=== PATIENT | male | born 2000 | race Caucasian/White ===

== ENCOUNTER 2021-11-04 15:59 | Emergency (ER) | payer OTHER ==
[~2021-11-04] VITALS: Ht 190.5 cm; Wt 81.7 kg
[2021-11-04] MEDS ORDERED: Vistaril50 MG PO (16:31)
== END 2021-11-04 16:37 | disposition home or self-care (01) ==
LOC: ER 15:59
DX: F41.9 Anxiety disorder, unspecified (principal)
CPT/HCPCS: 99282

== ENCOUNTER → 2022-05-05 | Outpatient (CLI) | payer OTHER ==
[~2022-05-05] MED LIST: Vistaril50 MG PO
[2022-05-05 19:29] LABS: BASOPHILS ABSOLUTE AUTO 0.02 K/mm3 (0.00-0.23); BASOPHILS PERCENT AUTO 0 % (0-2); EOSINOPHILS ABSOLUTE AUTO 0.15 K/mm3 (0.00-0.68); EOSINOPHILS PERCENT AUTO 3 % (0-6); Hematocrit 44.1 % (37.0-53.0); Hemoglobin 14.4 g/dL (13.5-17.5); IMMATURE GRAN PERCENT AUTO 0 % (0-1); LYMPHOCYTES ABSOLUTE AUTO 2.03 K/mm3 (0.84-5.20); LYMPHOCYTES PERCENT AUTO 42 % (21-46); MONOCYTES ABSOLUTE AUTO 0.37 K/mm3 (0.16-1.47); MONOCYTES PERCENT AUTO 8 % (4-13); Mean Corpuscular HGB 29.1 pg (26.0-34.0); Mean Corpuscular HGB Conc 32.7 g/dL (31.5-36.5); Mean Corpuscular Volume 89 fL (80-100); Mean Platelet Volume 11.2 fL (9.1-12.4); NEUTROPHILS PERCENT AUTO 47 % (41-73); Platelet Count 198 K/mm3 (150-400); RDW Coefficient Variation 12.3 % (11.7-14.2); RDW Standard Deviation 40.7 fL (35.1-46.3); Red Blood Cell Count 4.94 M/mm3 (4.30-5.90); White Blood Cell Count 4.87 K/mm3 (4.00-11.30)
[2022-05-05 21:09] LABS: Alanine Aminotransfer (ALT/SGP 19 U/L (12-78); Albumin, Blood 4.4 g/dL (3.4-5.0); Albumin/Globulin Ratio 1.5 (0.8-1.8); Alk Phos 42 U/L (50-136); Anion Gap 9 mmol/L (6-16); Aspartate Aminotrans (AST/SGOT 15 U/L (12-37); Bilirubin, Total 0.5 mg/dL (0.1-1.0); Blood Urea Nitrogen 16 mg/dL (8-24); CHOL/HDL RATIO 1.9; CO2, Blood 25 mmol/L (21-32); Calcium, Blood 9.2 mg/dL (8.5-10.1); Chloride, Blood 106 mmol/L (98-108); Cholesterol 150 mg/dL (50-200); Globulin, Blood 2.9 g/dL (2.2-4.0); Glomerular Filtration Rate 134 (60-); Glucose, Blood 93 mg/dL (70-99); HDL Cholesterol 78 mg/dL (>39); LDL/HDL RATIO 0.8; Low Density Lipoprotein Chol 64 mg/dL (0-110); Sodium, Blood 140 mmol/L (136-145); Total Protein, Blood 7.3 g/dL (6.4-8.2); Triglycerides 40 mg/dL (30-140); Very Low Density Lipoprot Chol 8 mg/dL (6-28)
== END | disposition home or self-care (01) ==
LOC: LAB 14:30 → LAB SHORT 14:30
PROVIDERS: Family Medicine
DX: Z13.6 Encounter for screening for cardiovascular disorders (principal); Z79.899 Other long term (current) drug therapy
CPT/HCPCS: 80053; 80061; 84443; 85025

== ENCOUNTER 2022-09-17 11:07 | Emergency (ER) | payer OTHER ==
[~2022-09-17] VITALS: Ht 190.5 cm; Wt 81.7 kg
[2022-09-17 12:15] LABS: BASOPHILS ABSOLUTE AUTO 0.02 K/mm3 (0.00-0.23); BASOPHILS PERCENT AUTO 0 % (0-2); EOSINOPHILS ABSOLUTE AUTO 0.01 K/mm3 (0.00-0.68); EOSINOPHILS PERCENT AUTO 0 % (0-6); Hemoglobin 13.5 g/dL (13.5-17.5); IMMATURE GRAN ABSOLUTE AUTO 0.01 K/mm3 (0.00-0.10); IMMATURE GRAN PERCENT AUTO 0 % (0-1); LYMPHOCYTES ABSOLUTE AUTO 1.68 K/mm3 (0.84-5.20); LYMPHOCYTES PERCENT AUTO 32 % (21-46); MONOCYTES ABSOLUTE AUTO 0.36 K/mm3 (0.16-1.47); MONOCYTES PERCENT AUTO 7 % (4-13); Mean Corpuscular HGB 29.5 pg (26.0-34.0); Mean Corpuscular HGB Conc 33.8 g/dL (31.5-36.5); Mean Corpuscular Volume 88 fL (80-100); Mean Platelet Volume 10.5 fL (9.1-12.4); NEUTROPHILS ABSOLUTE AUTO 3.21 K/mm3 (1.96-9.15); NEUTROPHILS PERCENT AUTO 61 % (41-73); Platelet Count 192 K/mm3 (150-400); RDW Standard Deviation 38.6 fL (35.1-46.3); Red Blood Cell Count 4.57 M/mm3 (4.30-5.90); White Blood Cell Count 5.29 K/mm3 (4.00-11.30)
[2022-09-17 12:37] LABS: Ethanol (Alcohol), Blood, Med <3 mg/dL; Salicylate <1.7 mg/dL (2.8-20.0)
[2022-09-17 12:40] LABS: Acetaminophen, Random <2.0 ug/mL (10.0-30.0); Alanine Aminotransfer (ALT/SGP 21 U/L (12-78); Albumin, Blood 4.4 g/dL (3.4-5.0); Albumin/Globulin Ratio 1.4 (0.8-1.8); Alk Phos 43 U/L (50-136); Anion Gap 6 mmol/L (6-16); Aspartate Aminotrans (AST/SGOT 22 U/L (12-37); Bilirubin, Total 0.8 mg/dL (0.1-1.0); Blood Urea Nitrogen 10 mg/dL (8-24); Bun/Creatinine Ratio 15.3 (12.0-20.0); CO2, Blood 25 mmol/L (21-32); Calcium, Blood 9.3 mg/dL (8.5-10.1); Chloride, Blood 108 mmol/L (98-108); Creatinine, Blood 0.65 mg/dL (0.60-1.20); Globulin, Blood 3.1 g/dL (2.2-4.0); Glomerular Filtration Rate 137 (60-); Glucose, Blood 88 mg/dL (70-99); Potassium, Blood 3.7 mmol/L (3.5-5.5); Sodium, Blood 139 mmol/L (136-145); Total Protein, Blood 7.5 g/dL (6.4-8.2)
[2022-09-17 14:01] LABS: Influenza A, PCR NEGATIVE (NEGATIVE); Influenza B, PCR NEGATIVE (NEGATIVE); Resp Syncytial Virus, PCR NEGATIVE (NEGATIVE); SARS-Cov-2 (COVID-19) PCR, MMC NEGATIVE (NEGATIVE)
[2022-09-17] MEDS ORDERED: Zoloft25 MG PO (14:32)
== END 2022-09-17 14:45 | disposition home or self-care (01) ==
LOC: ER 11:07
PROVIDERS: Physician Assistant; Student in an Organized Health Care Education/Training Program
DX: F32.9 Major depressive disorder, single episode, unspecified (principal); F32.A Depression, unspecified
CPT/HCPCS: 0241U; 80053; 85025; A9270; G0480

== ENCOUNTER 2022-12-19 09:02 | Observation (INO) | payer OTHER ==
[~2022-12-19] VITALS: Ht 190.5 cm; Wt 86.2 kg
[~2022-12-19 09:02] MED LIST changes: +Zoloft25 MG PO
[2022-12-19] MEDS ORDERED: Prozac40 MG PO (09:53)
[2022-12-19] MEDS ORDERED: ZYPREXA513 PO (09:53)
[2022-12-19] MEDS ORDERED: ASPI325 (09:53)
[2022-12-19 10:40] LABS: BASOPHILS ABSOLUTE AUTO 0.02 K/mm3 (0.00-0.23); BASOPHILS PERCENT AUTO 0 % (0-2); EOSINOPHILS ABSOLUTE AUTO 0.02 K/mm3 (0.00-0.68); EOSINOPHILS PERCENT AUTO 0 % (0-6); Hematocrit 45.6 % (37.0-53.0); IMMATURE GRAN ABSOLUTE AUTO 0.01 K/mm3 (0.00-0.10); IMMATURE GRAN PERCENT AUTO 0 % (0-1); LYMPHOCYTES ABSOLUTE AUTO 1.69 K/mm3 (0.84-5.20); LYMPHOCYTES PERCENT AUTO 19 % (21-46); MONOCYTES ABSOLUTE AUTO 0.39 K/mm3 (0.16-1.47); MONOCYTES PERCENT AUTO 4 % (4-13); Mean Corpuscular HGB Conc 35.1 g/dL (31.5-36.5); Mean Corpuscular Volume 85 fL (80-100); Mean Platelet Volume 10.1 fL (9.1-12.4); NEUTROPHILS ABSOLUTE AUTO 7.01 K/mm3 (1.96-9.15); NEUTROPHILS PERCENT AUTO 77 % (41-73); Platelet Count 259 K/mm3 (150-400); RDW Coefficient Variation 12.2 % (11.7-14.2); RDW Standard Deviation 38.1 fL (35.1-46.3); Red Blood Cell Count 5.34 M/mm3 (4.30-5.90); White Blood Cell Count 9.14 K/mm3 (4.00-11.30)
[2022-12-19 10:48] LABS: Source, Urine Clean Catch
[2022-12-19 11:17] LABS: Ethanol (Alcohol), Blood, Med <3 mg/dL; Salicylate <1.7 mg/dL (2.8-20.0)
[2022-12-19 11:20] LABS: Alanine Aminotransfer (ALT/SGP 27 U/L (12-78); Albumin, Blood 5.3 g/dL (3.4-5.0); Albumin/Globulin Ratio 1.6 (0.8-1.8); Alk Phos 51 U/L (50-136); Anion Gap 7 mmol/L (6-16); Aspartate Aminotrans (AST/SGOT 24 U/L (12-37); Bilirubin, Total 0.8 mg/dL (0.1-1.0); Blood Urea Nitrogen 14 mg/dL (8-24); Bun/Creatinine Ratio 21.3 (12.0-20.0); CO2, Blood 24 mmol/L (21-32); Calcium, Blood 9.9 mg/dL (8.5-10.1); Chloride, Blood 108 mmol/L (98-108); Creatinine, Blood 0.66 mg/dL (0.60-1.20); Globulin, Blood 3.4 g/dL (2.2-4.0); Glomerular Filtration Rate 136 (60-); Glucose, Blood 74 mg/dL (70-99); Potassium, Blood 4.1 mmol/L (3.5-5.5); Sodium, Blood 139 mmol/L (136-145); Total Protein, Blood 8.7 g/dL (6.4-8.2)
[2022-12-19 11:21] LABS: Acetaminophen, Random <2.0 ug/mL (10.0-30.0)
[2022-12-19 11:26] LABS: Influenza A, PCR NEGATIVE (NEGATIVE); Influenza B, PCR NEGATIVE (NEGATIVE); Resp Syncytial Virus, PCR NEGATIVE (NEGATIVE); SARS-Cov-2 (COVID-19) PCR, MMC NEGATIVE (NEGATIVE)
[2022-12-19 11:27] LABS: U Amphetamine Screen Not Detected; U Barbituate Screen Not Detected; U Benzodiazapine Screen Not Detected; U Buprenorphine Screen Not Detected; U Cannabinoids Screen DETECTED; U Cocaine Screen Not Detected; U Methadone Screen Not Detected; U Methamphetamine Screen Not Detected; U Opiates Screen Not Detected; U Oxycodone Screen Not Detected; U Phencyclidine Screen Not Detected; U Propoxyphene Screen Not Detected
[2022-12-19 11:36] LABS: Appearance, Urine Clear (Clear); Bilirubin, Urine Neg (Neg); Blood, Urine Neg (Neg); Color, Urine Yellow (P-Yellow); Glucose Qualitative, Urine Neg (Neg); Ketones, Urine 2+ (Neg); Leukocyte Esterase, Urine Neg (Neg); Nitrite, Urine Neg (Neg); Protein, Urine 1+ (Neg); Specific Gravity, Urine 1.025 (1.003-1.022); Urobilinogen, Urine NORM (Normal)
== END 2022-12-19 22:20 ==
LOC: ER 09:02 → EOR 09:03
PROVIDERS: Physician Assistant; ADMIT Student in an Organized Health Care Education/Training Program
DX: F33.2 Major depressive disorder, recurrent severe without psychotic features (principal); F10.20 Alcohol dependence, uncomplicated; Z20.822 Contact with and (suspected) exposure to COVID-19
CPT/HCPCS: 0241U; 80053; 85025; 93005; 93010; A9270; G0480

== ENCOUNTER 2022-12-24 11:45 | Observation (INO) | payer OTHER ==
[~2022-12-24] VITALS: Ht 190.5 cm; Wt 86.2 kg
[~2022-12-24 11:45] MED LIST changes: +ASPI325; +Prozac40 MG PO; +ZYPREXA513 PO
[2022-12-24 13:53] LABS: Influenza A, PCR NEGATIVE (NEGATIVE); Influenza B, PCR NEGATIVE (NEGATIVE); Resp Syncytial Virus, PCR NEGATIVE (NEGATIVE); SARS-Cov-2 (COVID-19) PCR, MMC NEGATIVE (NEGATIVE)
[2022-12-24 13:58] LABS: BASOPHILS ABSOLUTE AUTO 0.02 K/mm3 (0.00-0.23); BASOPHILS PERCENT AUTO 0 % (0-2); EOSINOPHILS ABSOLUTE AUTO 0.01 K/mm3 (0.00-0.68); EOSINOPHILS PERCENT AUTO 0 % (0-6); Hematocrit 46.3 % (37.0-53.0); Hemoglobin 15.8 g/dL (13.5-17.5); IMMATURE GRAN ABSOLUTE AUTO 0.01 K/mm3 (0.00-0.10); IMMATURE GRAN PERCENT AUTO 0 % (0-1); LYMPHOCYTES ABSOLUTE AUTO 1.78 K/mm3 (0.84-5.20); LYMPHOCYTES PERCENT AUTO 29 % (21-46); MONOCYTES ABSOLUTE AUTO 0.28 K/mm3 (0.16-1.47); MONOCYTES PERCENT AUTO 5 % (4-13); Mean Corpuscular HGB 29.7 pg (26.0-34.0); Mean Corpuscular HGB Conc 34.1 g/dL (31.5-36.5); Mean Corpuscular Volume 87 fL (80-100); Mean Platelet Volume 10.1 fL (9.1-12.4); NEUTROPHILS ABSOLUTE AUTO 3.98 K/mm3 (1.96-9.15); NEUTROPHILS PERCENT AUTO 65 % (41-73); Platelet Count 221 K/mm3 (150-400); RDW Standard Deviation 38.8 fL (35.1-46.3); Red Blood Cell Count 5.32 M/mm3 (4.30-5.90); White Blood Cell Count 6.08 K/mm3 (4.00-11.30)
[2022-12-24 15:21] LABS: Source, Urine Clean Catch
[2022-12-24 15:24] LABS: Appearance, Urine Clear (Clear); Bilirubin, Urine Neg (Neg); Blood, Urine Neg (Neg); Color, Urine Yellow (P-Yellow); Glucose Qualitative, Urine Neg (Neg); Ketones, Urine 4+ (Neg); Leukocyte Esterase, Urine Neg (Neg); Nitrite, Urine Neg (Neg); Protein, Urine Neg (Neg); Specific Gravity, Urine 1.025 (1.003-1.022); Urobilinogen, Urine 1+ (Normal)
[2022-12-24 15:34] LABS: U Amphetamine Screen Not Detected; U Barbituate Screen Not Detected; U Benzodiazapine Screen DETECTED; U Buprenorphine Screen Not Detected; U Cannabinoids Screen DETECTED; U Cocaine Screen Not Detected; U Methadone Screen Not Detected; U Methamphetamine Screen Not Detected; U Opiates Screen Not Detected; U Oxycodone Screen Not Detected; U Phencyclidine Screen Not Detected; U Propoxyphene Screen Not Detected
[2022-12-24 15:34] LABS: Alanine Aminotransfer (ALT/SGP 26 U/L (12-78); Albumin, Blood 5.2 g/dL (3.4-5.0); Albumin/Globulin Ratio 1.5 (0.8-1.8); Alk Phos 48 U/L (40-126); Anion Gap 13 mmol/L (6-16); Aspartate Aminotrans (AST/SGOT 30 U/L (12-37); Bilirubin, Total 1.6 mg/dL (0.1-1.0); Blood Urea Nitrogen 16 mg/dL (8-24); CO2, Blood 27 mmol/L (21-32); Calcium, Blood 9.8 mg/dL (8.5-10.1); Chloride, Blood 100 mmol/L (98-108); Creatinine, Blood 0.84 mg/dL (0.60-1.20); Globulin, Blood 3.4 g/dL (2.2-4.0); Glomerular Filtration Rate 126 (60-); Glucose, Blood 81 mg/dL (70-99); Potassium, Blood 3.9 mmol/L (3.5-5.5); Sodium, Blood 140 mmol/L (136-145); Thyroid Stimulating Hormone 0.372 uIU/mL (0.360-4.800); Total Protein, Blood 8.6 g/dL (6.4-8.2)
[2022-12-24 19:36] LABS: Ethanol (Alcohol), Blood, Med <3 mg/dL; Salicylate <1.7 mg/dL (2.8-20.0); Thyroxine (T4) 11.3 ug/dL (4.5-12.1)
[2022-12-24 19:54] LABS: Acetaminophen, Random <2.0 ug/mL (10.0-30.0)
== END 2022-12-26 01:11 ==
LOC: ER 11:45 → EOR 14:06
PROVIDERS: Emergency Medicine; ADMIT Emergency Medicine
DX: F33.2 Major depressive disorder, recurrent severe without psychotic features (principal); F10.20 Alcohol dependence, uncomplicated; F41.1 Generalized anxiety disorder; Z79.899 Other long term (current) drug therapy; Z20.822 Contact with and (suspected) exposure to COVID-19
CPT/HCPCS: 0241U; 80053; 81003; 84436; 84443; 85025; 90714; 96372; 99285-25; A9270; G0378; G0480; J2060; Q3014

== ENCOUNTER → 2023-01-05 | Outpatient (CLI) | payer OTHER ==
[2023-01-05 19:50] LABS: BASOPHILS ABSOLUTE AUTO 0.01 K/mm3 (0.00-0.23); BASOPHILS PERCENT AUTO 0 % (0-2); EOSINOPHILS ABSOLUTE AUTO 0.01 K/mm3 (0.00-0.68); EOSINOPHILS PERCENT AUTO 0 % (0-6); Hematocrit 43.4 % (37.0-53.0); Hemoglobin 14.8 g/dL (13.5-17.5); IMMATURE GRAN ABSOLUTE AUTO 0.01 K/mm3 (0.00-0.10); IMMATURE GRAN PERCENT AUTO 0 % (0-1); LYMPHOCYTES ABSOLUTE AUTO 2.08 K/mm3 (0.84-5.20); LYMPHOCYTES PERCENT AUTO 36 % (21-46); MONOCYTES ABSOLUTE AUTO 0.39 K/mm3 (0.16-1.47); MONOCYTES PERCENT AUTO 7 % (4-13); Mean Corpuscular HGB 29.7 pg (26.0-34.0); Mean Corpuscular HGB Conc 34.1 g/dL (31.5-36.5); Mean Corpuscular Volume 87 fL (80-100); Mean Platelet Volume 10.5 fL (9.1-12.4); NEUTROPHILS ABSOLUTE AUTO 3.23 K/mm3 (1.96-9.15); NEUTROPHILS PERCENT AUTO 56 % (41-73); Platelet Count 250 K/mm3 (150-400); RDW Standard Deviation 38.5 fL (35.1-46.3); Red Blood Cell Count 4.98 M/mm3 (4.30-5.90); White Blood Cell Count 5.73 K/mm3 (4.00-11.30)
[2023-01-05 22:20] LABS: Alanine Aminotransfer (ALT/SGP 26 U/L (12-78); Albumin, Blood 4.5 g/dL (3.4-5.0); Albumin/Globulin Ratio 1.5 (0.8-1.8); Alk Phos 44 U/L (50-136); Anion Gap 3 mmol/L (6-16); Aspartate Aminotrans (AST/SGOT 17 U/L (12-37); Bilirubin, Total 0.9 mg/dL (0.1-1.0); Blood Urea Nitrogen 10 mg/dL (8-24); Bun/Creatinine Ratio 15.1 (12.0-20.0); CHOL/HDL RATIO 1.9; CO2, Blood 28 mmol/L (21-32); Calcium, Blood 9.2 mg/dL (8.5-10.1); Chloride, Blood 107 mmol/L (98-108); Cholesterol 153 mg/dL (50-200); Creatinine, Blood 0.66 mg/dL (0.60-1.20); Globulin, Blood 3.1 g/dL (2.2-4.0); Glomerular Filtration Rate 135 (60-); Glucose, Blood 114 mg/dL (70-99); HDL Cholesterol 81 mg/dL (>39); LDL/HDL RATIO 0.7; Low Density Lipoprotein Chol 54 mg/dL (0-110); Potassium, Blood 3.6 mmol/L (3.5-5.5); Sodium, Blood 138 mmol/L (136-145); Total Protein, Blood 7.6 g/dL (6.4-8.2); Triglycerides 88 mg/dL (30-140); Very Low Density Lipoprot Chol 17 mg/dL (6-28)
== END | disposition home or self-care (01) ==
LOC: LAB 13:40 → LAB SHORT 13:40
PROVIDERS: Family Medicine
DX: R10.9 Unspecified abdominal pain (principal); Z79.899 Other long term (current) drug therapy
CPT/HCPCS: 80053; 80061; 83690; 84443; 85025; G0480

== ENCOUNTER 2023-05-19 14:14 | Emergency (ER) | payer OTHER ==
[~2023-05-19] VITALS: Ht 190.5 cm; Wt 104.3 kg
[2023-05-19 14:23] VITALS: BP 160/111
[2023-05-19 14:52] LABS: BASOPHILS ABSOLUTE AUTO 0.01 K/mm3 (0.00-0.23); BASOPHILS PERCENT AUTO 0 % (0-2); EOSINOPHILS ABSOLUTE AUTO 0.05 K/mm3 (0.00-0.68); EOSINOPHILS PERCENT AUTO 1 % (0-6); Hematocrit 43.9 % (37.0-53.0); Hemoglobin 14.7 g/dL (13.5-17.5); IMMATURE GRAN ABSOLUTE AUTO 0.01 K/mm3 (0.00-0.10); IMMATURE GRAN PERCENT AUTO 0 % (0-1); LYMPHOCYTES ABSOLUTE AUTO 1.76 K/mm3 (0.84-5.20); LYMPHOCYTES PERCENT AUTO 34 % (21-46); MONOCYTES ABSOLUTE AUTO 0.35 K/mm3 (0.16-1.47); MONOCYTES PERCENT AUTO 7 % (4-13); Mean Corpuscular HGB 29.8 pg (26.0-34.0); Mean Corpuscular HGB Conc 33.5 g/dL (31.5-36.5); Mean Corpuscular Volume 89 fL (80-100); Mean Platelet Volume 10.7 fL (9.1-12.4); NEUTROPHILS ABSOLUTE AUTO 2.94 K/mm3 (1.96-9.15); NEUTROPHILS PERCENT AUTO 57 % (41-73); Platelet Count 193 K/mm3 (150-400); RDW Coefficient Variation 12.8 % (11.7-14.2); RDW Standard Deviation 41.3 fL (35.1-46.3); Red Blood Cell Count 4.94 M/mm3 (4.30-5.90); White Blood Cell Count 5.12 K/mm3 (4.00-11.30)
[2023-05-19] MEDS ORDERED: Prozac20 MG PO (14:58)
[2023-05-19] MEDS ORDERED: Gabapentin600 MG PO (14:58)
[2023-05-19 15:10] LABS: Source, Urine Clean Catch
[2023-05-19 15:14] LABS: Ethanol (Alcohol), Blood, Med <3 mg/dL; Salicylate <1.7 mg/dL (2.8-20.0)
[2023-05-19 15:18] LABS: Appearance, Urine Clear (Clear); Bilirubin, Urine Neg (Neg); Blood, Urine Neg (Neg); Color, Urine Yellow (P-Yellow); Glucose Qualitative, Urine Neg (Neg); Ketones, Urine Neg (Neg); Leukocyte Esterase, Urine Neg (Neg); Nitrite, Urine Neg (Neg); Protein, Urine Neg (Neg); Urobilinogen, Urine NORM (Normal)
[2023-05-19 15:23] LABS: Acetaminophen, Random <2.0 ug/mL (10.0-30.0); Alanine Aminotransfer (ALT/SGP 23 U/L (12-78); Albumin, Blood 4.6 g/dL (3.4-5.0); Albumin/Globulin Ratio 1.5 (0.8-1.8); Alk Phos 47 U/L (50-136); Anion Gap 4 mmol/L (6-16); Aspartate Aminotrans (AST/SGOT 20 U/L (12-37); Bilirubin, Total 0.8 mg/dL (0.1-1.0); Blood Urea Nitrogen 7 mg/dL (8-24); Bun/Creatinine Ratio 8.5 (12.0-20.0); CO2, Blood 27 mmol/L (21-32); Calcium, Blood 9.4 mg/dL (8.5-10.1); Chloride, Blood 109 mmol/L (98-108); Creatinine, Blood 0.82 mg/dL (0.60-1.20); Glomerular Filtration Rate 127 (60-); Glucose, Blood 100 mg/dL (70-99); Potassium, Blood 3.7 mmol/L (3.5-5.5); Sodium, Blood 140 mmol/L (136-145); Total Protein, Blood 7.6 g/dL (6.4-8.2)
[2023-05-19 15:34] LABS: U Amphetamine Screen Not Detected; U Barbituate Screen Not Detected; U Benzodiazapine Screen Not Detected; U Buprenorphine Screen Not Detected; U Cannabinoids Screen DETECTED; U Cocaine Screen Not Detected; U Methadone Screen Not Detected; U Methamphetamine Screen Not Detected; U Opiates Screen Not Detected; U Oxycodone Screen Not Detected; U Phencyclidine Screen Not Detected; U Propoxyphene Screen Not Detected
[2023-05-19] MEDS ORDERED: Prozac40 MG PO ×2 (16:46→17:02)
[2023-05-19] MEDS ORDERED: Neurontin 300300 MG PO (16:46)
== END 2023-05-19 17:04 | disposition home or self-care (01) ==
LOC: ER 14:14
PROVIDERS: Physician Assistant
DX: F32.A Depression, unspecified (principal)
CPT/HCPCS: 80053; 81003; 85025; A9270; G0480

== ENCOUNTER 2023-11-27 10:39 | Observation (INO) | payer OTHER ==
[~2023-11-27] VITALS: Ht 190.5 cm; Wt 99.8 kg
[~2023-11-27 10:39] MED LIST changes: +Gabapentin600 MG PO; +Neurontin 300300 MG PO; +Prozac20 MG PO
[2023-11-27 12:17] LABS: BASOPHILS ABSOLUTE AUTO 0.03 K/mm3 (0.00-0.23); BASOPHILS PERCENT AUTO 1 % (0-2); EOSINOPHILS ABSOLUTE AUTO 0.07 K/mm3 (0.00-0.68); EOSINOPHILS PERCENT AUTO 1 % (0-6); Hematocrit 46.6 % (37.0-53.0); Hemoglobin 15.5 g/dL (13.5-17.5); IMMATURE GRAN ABSOLUTE AUTO 0.01 K/mm3 (0.00-0.10); IMMATURE GRAN PERCENT AUTO 0 % (0-1); LYMPHOCYTES ABSOLUTE AUTO 1.73 K/mm3 (0.84-5.20); LYMPHOCYTES PERCENT AUTO 33 % (21-46); MONOCYTES PERCENT AUTO 6 % (4-13); Mean Corpuscular HGB 29.5 pg (26.0-34.0); Mean Corpuscular HGB Conc 33.3 g/dL (31.5-36.5); Mean Corpuscular Volume 89 fL (80-100); Mean Platelet Volume 10.5 fL (9.1-12.4); NEUTROPHILS ABSOLUTE AUTO 3.09 K/mm3 (1.96-9.15); NEUTROPHILS PERCENT AUTO 59 % (41-73); Platelet Count 237 K/mm3 (150-400); RDW Coefficient Variation 12.3 % (11.7-14.2); RDW Standard Deviation 40.3 fL (35.1-46.3); Red Blood Cell Count 5.25 M/mm3 (4.30-5.90); White Blood Cell Count 5.23 K/mm3 (4.00-11.30)
[2023-11-27 12:39] LABS: Ethanol (Alcohol), Blood, Med 125 mg/dL; Salicylate <1.7 mg/dL (2.8-20.0)
[2023-11-27 12:45] LABS: Alanine Aminotransfer (ALT/SGP 26 U/L (12-78); Albumin, Blood 4.8 g/dL (3.4-5.0); Albumin/Globulin Ratio 1.3 (0.8-1.8); Alk Phos 54 U/L (50-136); Anion Gap 4 mmol/L (6-16); Aspartate Aminotrans (AST/SGOT 28 U/L (12-37); Bilirubin, Total 0.6 mg/dL (0.1-1.0); Blood Urea Nitrogen 9 mg/dL (8-24); Bun/Creatinine Ratio 12.2 (12.0-20.0); CO2, Blood 25 mmol/L (21-32); Calcium, Blood 9.8 mg/dL (8.5-10.1); Chloride, Blood 110 mmol/L (98-108); Creatinine, Blood 0.74 mg/dL (0.60-1.20); Globulin, Blood 3.8 g/dL (2.2-4.0); Glomerular Filtration Rate 131 (60-); Glucose, Blood 76 mg/dL (70-99); Potassium, Blood 4.2 mmol/L (3.5-5.5); Sodium, Blood 139 mmol/L (136-145); Total Protein, Blood 8.6 g/dL (6.4-8.2)
[2023-11-27 12:47] LABS: Acetaminophen, Random <2.0 ug/mL (10.0-30.0)
[2023-11-27] MEDS ORDERED: HYDHCL25 PO (16:20)
[2023-11-27] MEDS ORDERED: QUET25 PO (16:20)
[2023-11-27] MEDS ORDERED: LOTREXONE1.5 MG PO (16:20)
[2023-11-27 16:58] LABS: Source, Urine Clean Catch
[2023-11-27 17:02] LABS: Appearance, Urine Clear (Clear); Bilirubin, Urine Neg (Neg); Blood, Urine Neg (Neg); Color, Urine Yellow (P-Yellow); Glucose Qualitative, Urine Neg (Neg); Ketones, Urine Neg (Neg); Leukocyte Esterase, Urine Neg (Neg); Nitrite, Urine Neg (Neg); Protein, Urine Neg (Neg); Urobilinogen, Urine NORM (Normal)
[2023-11-27 17:12] LABS: U Cannabinoids Screen DETECTED
[2023-11-27 17:13] LABS: U Amphetamine Screen Not Detected; U Barbituate Screen Not Detected; U Benzodiazapine Screen Not Detected; U Buprenorphine Screen Not Detected; U Cocaine Screen Not Detected; U Methadone Screen Not Detected; U Methamphetamine Screen Not Detected; U Opiates Screen Not Detected; U Oxycodone Screen Not Detected; U Phencyclidine Screen Not Detected
[2023-11-28 09:41] VITALS: BP 136/94
== END 2023-11-28 16:09 | disposition other institution (70) ==
LOC: ER 10:39 → EOR 10:40
PROVIDERS: Student in an Organized Health Care Education/Training Program; ADMIT Emergency Medicine
DX: F39 Unspecified mood [affective] disorder (principal); Z79.899 Other long term (current) drug therapy; R45.851 Suicidal ideations
CPT/HCPCS: 36415; 80053; 81003; 85025; 93005; 93010; 99285-25; A9270; G0378; G0480

== ENCOUNTER → 2025-02-09 | Outpatient (CLI) | payer OTHER ==
[~2025-02-09] MED LIST changes: +HYDHCL25 PO; +LOTREXONE1.5 MG PO; +QUET25 PO
[2025-02-09 18:52] LABS: BASOPHILS ABSOLUTE AUTO 0.01 K/mm3 (0.00-0.23); BASOPHILS PERCENT AUTO 0 % (0-2); EOSINOPHILS ABSOLUTE AUTO 0.02 K/mm3 (0.00-0.68); EOSINOPHILS PERCENT AUTO 0 % (0-6); Hemoglobin 14.4 g/dL (13.5-17.5); IMMATURE GRAN ABSOLUTE AUTO 0.01 K/mm3 (0.00-0.10); IMMATURE GRAN PERCENT AUTO 0 % (0-1); LYMPHOCYTES ABSOLUTE AUTO 1.69 K/mm3 (0.84-5.20); LYMPHOCYTES PERCENT AUTO 29 % (21-46); MONOCYTES ABSOLUTE AUTO 0.33 K/mm3 (0.16-1.47); MONOCYTES PERCENT AUTO 6 % (4-13); Mean Corpuscular HGB 28.7 pg (26.0-34.0); Mean Corpuscular HGB Conc 33.5 g/dL (31.5-36.5); Mean Corpuscular Volume 86 fL (80-100); Mean Platelet Volume 11.4 fL (9.1-12.4); NEUTROPHILS ABSOLUTE AUTO 3.88 K/mm3 (1.96-9.15); NEUTROPHILS PERCENT AUTO 65 % (41-73); Platelet Count 225 K/mm3 (150-400); RDW Coefficient Variation 12.5 % (11.7-14.2); RDW Standard Deviation 38.8 fL (35.1-46.3); Red Blood Cell Count 5.02 M/mm3 (4.30-5.90); White Blood Cell Count 5.94 K/mm3 (4.00-11.30)
[2025-02-09 19:06] LABS: International Normalized Ratio 1.02; Prothrombin Time Results 10.9 Sec (9.7-11.5)
[2025-02-09 20:03] LABS: Alanine Aminotransfer (ALT/SGP 48 U/L (12-78); Albumin, Blood 4.8 g/dL (3.4-5.0); Albumin/Globulin Ratio 1.6 (0.8-1.8); Alk Phos 53 U/L (50-136); Anion Gap 11 mmol/L (3-11); Aspartate Aminotrans (AST/SGOT 30 U/L (12-37); Bilirubin, Total 0.7 mg/dL (0.1-1.0); Blood Urea Nitrogen 12 mg/dL (8-24); Bun/Creatinine Ratio 15.9 (12.0-20.0); CHOL/HDL RATIO 3.8; CO2, Blood 23 mmol/L (21-32); Calcium, Blood 9.6 mg/dL (8.5-10.1); Chloride, Blood 103 mmol/L (98-108); Cholesterol 170 mg/dL (50-200); Creatinine, Blood 0.76 mg/dL (0.60-1.20); Free Thyroxine 1.14 ng/dL (0.70-1.60); Glomerular Filtration Rate 128 (60-); Glucose, Blood 85 mg/dL (70-99); HDL Cholesterol 45 mg/dL (>39); Iron Serum 65 ug/dL (65-175); LDL/HDL RATIO 2.4; Low Density Lipoprotein Chol 109 mg/dL (0-110); Percent Saturation 21.7 % (20.0-50.0); Potassium, Blood 3.3 mmol/L (3.5-5.5); Prostate Specific Antigen 0.526 ng/mL (0.000-4.000); Sodium, Blood 134 mmol/L (136-145); Total Iron Binding Capacity 300 ug/dL (250-450); Total Protein, Blood 7.8 g/dL (6.4-8.2); Triglycerides 82 mg/dL (30-140); Very Low Density Lipoprot Chol 16 mg/dL (6-28)
== END ==
LOC: LAB SHORT 16:47 → LAB 16:47
PROVIDERS: Nurse Practitioner Family
DX: F10.10 Alcohol abuse, uncomplicated (principal); Z12.5 Encounter for screening for malignant neoplasm of prostate
CPT/HCPCS: 80053; 80061; 82607; 82746; 83540; 83550; 84439; 84443; 84481; 85025; 85610; G0103

== ENCOUNTER 2025-05-18 14:55 | Observation (INO) | payer OTHER ==
[~2025-05-18] VITALS: Ht 190.5 cm; Wt 99.8 kg
[2025-05-18 16:03] LABS: BASOPHILS ABSOLUTE AUTO 0.02 K/mm3 (0.00-0.23); BASOPHILS PERCENT AUTO 0 % (0-2); EOSINOPHILS ABSOLUTE AUTO 0.08 K/mm3 (0.00-0.68); EOSINOPHILS PERCENT AUTO 1 % (0-6); Hematocrit 40.2 % (37.0-53.0); Hemoglobin 13.2 g/dL (13.5-17.5); IMMATURE GRAN ABSOLUTE AUTO 0.01 K/mm3 (0.00-0.10); IMMATURE GRAN PERCENT AUTO 0 % (0-1); LYMPHOCYTES ABSOLUTE AUTO 2.27 K/mm3 (0.84-5.20); LYMPHOCYTES PERCENT AUTO 38 % (21-46); MONOCYTES ABSOLUTE AUTO 0.40 K/mm3 (0.16-1.47); MONOCYTES PERCENT AUTO 7 % (4-13); Mean Corpuscular HGB Conc 32.8 g/dL (31.5-36.5); Mean Corpuscular Volume 87 fL (80-100); NEUTROPHILS ABSOLUTE AUTO 3.21 K/mm3 (1.96-9.15); NEUTROPHILS PERCENT AUTO 54 % (41-73); NRBC ABSOLUTE 0.00 K/mm3 (0.00-0.02); NRBC Auto 0.0 /100 WBC (0.0-0.2); Platelet Count 214 K/mm3 (150-400); RDW Coefficient Variation 12.2 % (11.7-14.2); RDW Standard Deviation 38.8 fL (35.1-46.3)
[2025-05-18 16:04] LABS: Source, Urine Clean Catch
[2025-05-18 16:10] LABS: Bilirubin, Urine Neg (Neg); Color, Urine Yellow (P-Yellow); Glucose Qualitative, Urine Neg (Neg); Ketones, Urine Neg (Neg); Leukocyte Esterase, Urine Neg (Neg); Protein, Urine 1+ (Neg); Specific Gravity, Urine 1.025 (1.003-1.022); Urobilinogen, Urine NORM (Normal)
[2025-05-18] MEDS ORDERED: GABA300 PO (16:23)
[2025-05-18] MEDS ORDERED: Seroquel Xr50 MG PO (16:23)
[2025-05-18] MEDS ORDERED: HYDPAM50 PO (16:24)
[2025-05-18 16:27] LABS: Ethanol (Alcohol), Blood, Med 3 mg/dL; Salicylate <1.7 mg/dL (2.8-20.0)
[2025-05-18 16:28] LABS: U Amphetamine Screen Not Detected; U Barbituate Screen Not Detected; U Benzodiazapine Screen DETECTED; U Buprenorphine Screen Not Detected; U Cannabinoids Screen DETECTED; U Cocaine Screen Not Detected; U Methadone Screen Not Detected; U Methamphetamine Screen Not Detected; U Opiates Screen Not Detected; U Oxycodone Screen Not Detected; U Phencyclidine Screen Not Detected
[2025-05-18 16:43] LABS: Alanine Aminotransfer (ALT/SGP 31 U/L (12-78); Albumin, Blood 4.3 g/dL (3.4-5.0); Albumin/Globulin Ratio 1.3 (0.8-1.8); Anion Gap 7 mmol/L (3-11); Aspartate Aminotrans (AST/SGOT 31 U/L (12-37); Bilirubin, Total 0.7 mg/dL (0.1-1.0); Blood Urea Nitrogen 9 mg/dL (8-24); CO2, Blood 27 mmol/L (21-32); Calcium, Blood 9.2 mg/dL (8.5-10.1); Chloride, Blood 107 mmol/L (98-108); Creatinine, Blood 0.79 mg/dL (0.60-1.20); Globulin, Blood 3.2 g/dL (2.2-4.0); Glucose, Blood 85 mg/dL (70-99); Potassium, Blood 3.7 mmol/L (3.5-5.5); Sodium, Blood 137 mmol/L (136-145); Total Protein, Blood 7.5 g/dL (6.4-8.2)
[2025-05-18 16:44] LABS: Acetaminophen, Random <2.0 ug/mL (10.0-30.0)
[2025-05-19 10:12] VITALS: BP 136/91
[2025-05-23] MEDS ORDERED: HYDHCL25 PO (01:47)
== END 2025-05-19 13:43 | disposition home or self-care (01) ==
LOC: ER 14:55 → EOR 14:56
PROVIDERS: Student in an Organized Health Care Education/Training Program; ADMIT Student in an Organized Health Care Education/Training Program
DX: R45.851 Suicidal ideations (principal); F39 Unspecified mood [affective] disorder; F32.A Depression, unspecified; Z91.51 Personal history of suicidal behavior; Z79.899 Other long term (current) drug therapy
CPT/HCPCS: 36415; 80053; 80320; 85025; 99285; A9270; G0378; G0480

== ENCOUNTER 2025-05-22 18:43 | Observation (INO) | payer OTHER ==
[~2025-05-22] VITALS: Ht 190.5 cm; Wt 96.2 kg
[~2025-05-22 18:43] MED LIST changes: +GABA300 PO; +HYDPAM50 PO; +Seroquel Xr50 MG PO
[2025-05-22 19:40] LABS: BASOPHILS ABSOLUTE AUTO 0.02 K/mm3 (0.00-0.23); BASOPHILS PERCENT AUTO 0 % (0-2); EOSINOPHILS ABSOLUTE AUTO 0.12 K/mm3 (0.00-0.68); EOSINOPHILS PERCENT AUTO 2 % (0-6); Hematocrit 38.3 % (37.0-53.0); Hemoglobin 12.6 g/dL (13.5-17.5); IMMATURE GRAN ABSOLUTE AUTO 0.00 K/mm3 (0.00-0.10); IMMATURE GRAN PERCENT AUTO 0 % (0-1); LYMPHOCYTES ABSOLUTE AUTO 2.08 K/mm3 (0.84-5.20); LYMPHOCYTES PERCENT AUTO 41 % (21-46); MONOCYTES ABSOLUTE AUTO 0.45 K/mm3 (0.16-1.47); MONOCYTES PERCENT AUTO 9 % (4-13); Mean Corpuscular HGB Conc 32.9 g/dL (31.5-36.5); Mean Corpuscular Volume 88 fL (80-100); NEUTROPHILS ABSOLUTE AUTO 2.46 K/mm3 (1.96-9.15); NEUTROPHILS PERCENT AUTO 48 % (41-73); NRBC ABSOLUTE 0.00 K/mm3 (0.00-0.02); NRBC Auto 0.0 /100 WBC (0.0-0.2); Platelet Count 204 K/mm3 (150-400); RDW Coefficient Variation 12.2 % (11.7-14.2); RDW Standard Deviation 39.3 fL (35.1-46.3)
[2025-05-22 19:51] VITALS: BP 138/93
[2025-05-22 19:53] LABS: Source, Urine Clean Catch
[2025-05-22 20:00] LABS: Bilirubin, Urine Neg (Neg); Color, Urine Yellow (P-Yellow); Glucose Qualitative, Urine Neg (Neg); Ketones, Urine Neg (Neg); Leukocyte Esterase, Urine Neg (Neg); Protein, Urine Neg (Neg); Specific Gravity, Urine 1.015 (1.003-1.022); Urobilinogen, Urine NORM (Normal)
[2025-05-22 20:03] LABS: Salicylate <1.7 mg/dL (2.8-20.0)
[2025-05-22 20:10] LABS: Ethanol (Alcohol), Blood, Med 5 mg/dL
[2025-05-22 20:13] LABS: Acetaminophen, Random <2.0 ug/mL (10.0-30.0); Alanine Aminotransfer (ALT/SGP 25 U/L (12-78); Albumin, Blood 3.9 g/dL (3.4-5.0); Albumin/Globulin Ratio 1.4 (0.8-1.8); Anion Gap 7 mmol/L (3-11); Aspartate Aminotrans (AST/SGOT 21 U/L (12-37); Bilirubin, Total 0.5 mg/dL (0.1-1.0); Blood Urea Nitrogen 10 mg/dL (8-24); CO2, Blood 26 mmol/L (21-32); Calcium, Blood 8.8 mg/dL (8.5-10.1); Chloride, Blood 108 mmol/L (98-108); Creatinine, Blood 1.00 mg/dL (0.60-1.20); Globulin, Blood 2.8 g/dL (2.2-4.0); Glucose, Blood 94 mg/dL (70-99); Potassium, Blood 4.0 mmol/L (3.5-5.5); Sodium, Blood 137 mmol/L (136-145); Total Protein, Blood 6.7 g/dL (6.4-8.2)
[2025-05-22 20:21] LABS: U Amphetamine Screen Not Detected; U Barbituate Screen Not Detected; U Benzodiazapine Screen Not Detected; U Buprenorphine Screen Not Detected; U Cannabinoids Screen DETECTED; U Cocaine Screen Not Detected; U Methadone Screen Not Detected; U Methamphetamine Screen Not Detected; U Opiates Screen Not Detected; U Oxycodone Screen Not Detected; U Phencyclidine Screen Not Detected
[2025-05-23] MEDS ORDERED: HYDHCL25 PO ×2 (01:47)
== END 2025-05-23 11:17 | disposition other institution (70) ==
LOC: ER 18:43 → EOR 18:44
PROVIDERS: ADMIT Emergency Medicine
DX: F33.2 Major depressive disorder, recurrent severe without psychotic features (principal); Z79.899 Other long term (current) drug therapy
CPT/HCPCS: 80053; 80320; 81003; 85025; 99285; A9270; G0378; G0480

== ENCOUNTER 2025-05-23 10:13 | Inpatient (IN) | payer OTHER ==
[~2025-05-23] VITALS: Ht 190.5 cm; Wt 92.2 kg
[2025-05-23 11:36] VITALS: BP 124/98
[2025-05-23 11:57] VITALS: BP 124/98
[2025-05-23] MEDS ORDERED: Aluminum Hydroxide 320MG/5ML 473 ML PO PRN (13:00)
[2025-05-23] MEDS ORDERED: Ondansetron 4 MG SoluTab MM PRN (13:00)
[2025-05-23] MEDS ORDERED: Polyethylene Glycol 3350 17 gm PO PRN (13:05)
--- NOTE | 2025-05-23 18:52 | NUR ---
SHIFT SUMMARY PT DENIES SI, HI, AVTH. STATES THAT REASON FOR ADMIT WAS SUICIDAL IDEATION THAT WAS CAUSED/MADE WORSE BY TRIGGERING EVENTS INCLUDING, LOSS OF FAMILY/FRIENDS, FINANCIAL STRESS. PT ALSO STATED HE DRINKS A 6 PACK EVERY OTHER DAY W/ HIS LAST DRINK BEING 2 DAYS. PT CIWA APPEARS TO BE 5-6~, NO TREMORS OBSERVED. AFTER ADMIT, PT BECAME AGITATED, CAME OUT OF GROUP YELLING, "NO ONE LISTENS TO ME" AND DR REYES WAS NOTIFIED W/ ORDERS FOR A ONE TIME DOSE OF 1MG ATIVAN, PT NO LONGER AGITATED AND STATED, "I FEEL BETTER". PT ALSO STATED HE WANTED TO LEAVE AMA BEFORE ATIVAN, THERAPEUTIC COMMUNICATION USED AND APPEARS PT IS WILLING TO GIVE IT A "TRY". NO OTHER ACUTE EVENTS.
[2025-05-23 19:51] VITALS: BP 119/85
--- NOTE | 2025-05-24 04:10 | NUR ---
Patient is alert and oriented times four. cooperative with staff and pleasant with peers. He spent most of his time last evening out in the milieu watching a movie or participating in snack time. He denied SI,HI and AVTH during brief assessment yesterday evening. Will continue close monitoing every 15 minutes for comfort and safety. Patient has been sleeping since just after 2200.
[2025-05-24 08:01] LABS: CHOL/HDL RATIO 3.5; Cholesterol 177 mg/dL (50-200); HDL Cholesterol 50 mg/dL (>39); LDL/HDL RATIO 2.0; Low Density Lipoprotein Chol 101 mg/dL (0-110); Triglycerides 132 mg/dL (30-140); Very Low Density Lipoprot Chol 26 mg/dL (6-28)
[2025-05-24] MEDS ORDERED: Multivitamins 1 Tab PO SCH (09:00)
--- NOTE | 2025-05-24 16:55 | NUR ---
SHIFT SUMMARY DENIES SI, HI, AVTH. ATTENDED GROUPS AND INTERACTING W/ PEERS. PT AT START OF SHIFT EXPRESSED DESIRE TO DISCHARGE. DR REYES AND THIS RN TALKED W/ PT AND CONFIRMED PLAN TO DISCHARGE TOMORROW. MID/LATE SHIFT PT NOTIFIED THIS RN THAT PT DECIDED TO STAY AND REALIZED THAT PT HAD BEEN IN THE ED TWICE THIS PAST WEEK AND INDICATES THAT HE MAY BENEFIT FROM STAYING AND WORKING W/ STAFF. PT ENDORSED WILLING TO STAY LONG RECOMMENDED BY DOC. NO OTHER ACUTE EVENTS.
--- NOTE | 2025-05-25 04:53 | NUR ---
SHIFT SUMMARY: PATIENT WAS IN THE DINING ROOM FINISHING HIS DINNER AT THE BEGINNING OF THE SHIFT. HE THEN WENT TO HIS ROOM AND WAS SITTING ON HIS BED, READING THE BIBLE. HE WAS ABLE TO ANSWER INSTRUMENT TESTER QUESTIONS IN A LOGICAL AND LINEAR MANNER. HE DENIED SUICIDAL IDEATION, THOUGHTS OF SELF HARMING AND A/V/T HALLUCINATIONS. HE STATED THAT "I'VE CHANGED MY MIND, I WANT TO STAY AND SEE THIS TREATMENT OUT. I REALLY LIKE THE DOCTOR AND I TRUST HIM. EVERYONE HERE HAS BEEN CARING AND HELPFUL." HE STATED THAT HE WANTS "TO BE ON THE RIGHT MEDICATION AND LEARN OTHER SKILLS, TOO. I WANT TO GO TO THE GROUPS." HE WAS COMPLIANT WITH EVENING MEDICATIONS, AND PARTICIPATED IN SNACK TIME AND WRAP UP GROUP AT 2030 IN THE DINING AREA. HE THEN WENT TO BED, WHERE HE READ FOR A TIME, THEN WAS NOTED TO BE RESTING QUIETLY WITH EYES CLOSED AND RESPIRATIONS CONFIRMED FOR THE REMAINDER OF THE SHIFT. CONTINUING TO MONITOR FOR SAFETY WITH Q15 MINUTE CHECKS.
[2025-05-25 09:00] VITALS: BP 136/86
--- NOTE | 2025-05-25 16:55 | NUR ---
SHIFT SUMMARY PT HAS BEEN UP AND ENGAGED IN SHIFT ALL DAY, ATTENDED ALL GROUPS, MEALS AND TV TIME, HE HAS DENIED SI/HI/AVH ALL SHIFT, POLITE AND COOPERATIVE, HAS RECEIVED Q15 MIN VISUAL SAFETY CHECKS ALL SHIFT.
--- NOTE | 2025-05-25 20:43 | NUR ---
MEDICATION ADMINISTRATION: PATIENT GIVEN TRAZODONE, MELATONIN AND VISTARIL AT BEDTIME MEDICATION ADMINISTRATION BASED ON HIS REQUEST. HE STATED, "IT'S THE FORMULA THAT WORKS FOR ME". HE STATED THAT "IT GIVES ME A GOOD SLEEP" AND DENIED FEELING SLEEPY IN THE MORNING. CONTINUING TO MONITOR FOR EFFECTIVENESS AND SAFETY.
--- NOTE | 2025-05-26 04:23 | NUR ---
SHIFT SUMMARY: PATIENT WAS IN THE DINING ROOM FINISHING DINNER AT THE BEGINNING OF THE SHIFT. HE THEN WENT INTO THE DAY ROOM WITH PEERS AND STAFF TO WATCH A MOVIE. HE STATED THAT HE HAD "A GREAT DAY" AND "I'M ON IT WITH MY NEW PROGRAM". HE WAS INTERACTING PLEASANTLY WITH PEERS AND SMILING. HE WAS ABLE TO ANSWER DRUM TESTER QUESTIONS IN A LOGICAL AND LINEAR MANNER. HE DENIED SUICIDAL IDEATION, THOUGHTS OF SELF HARMING AND A/V/T HALLUCINATIONS. HE STATED THAT HE IS "FOCUSED ON MY PROGRAM" AND "NOT THINKING ABOUT HARMING MYSELF". HE WAS POSITIVE AND FUTURE ORIENTED IN HIS CONVERSATIONS. HE REQUESTED THE MEDICATIONS HE WANTED FOR BEDTIME, STATING, "THIS HAS WORKED FOR ME AND I WANT TO KEEP IT GOING" AND STATED THAT HE UNDERSTOOD WHAT THE MEDICATIONS WERE AND WHAT THEY WERE FOR. HE PARTICIPATED IN SNACK AND WRAP UP GROUP AT 2030, AND WAS MEDICATION COMPLIANT. HE THEN WENT BACK TO THE DAY ROOM TO FINISH THE MOVIE WITH STAFF AND PEERS. AT 2200, HE WENT TO HIS ROOM AND WENT TO BED, WHERE HE WAS NOTED TO BE RESTING QUIETLY WITH EYES CLOSED AND RESPIRATIONS CONFIRMED FOR THE REMAINDER OF THE SHIFT. CONTINUING TO MONITOR FOR SAFETY WITH Q15 MINUTE CHECKS.
[2025-05-26 08:54] VITALS: BP 134/82
--- NOTE | 2025-05-26 17:12 | NUR ---
SHIFT SUMMARY PT HAS BEEN UP AND ENGAGED IN THE [facility] ALL SHIFT. HE HAS DENIED SI/HI/AVH. HE STATED HE FEELS HE WILL NEED TO TAKE LESS NOC SLEEP MEDS HE FEELS VERY GROGGY THIS MORNING. ENCOURAGED HIM TO TALK TO HIS NOC RN ABOUT THIS. HE STATED HE WAS FEELING VERY EXCITED AND DETERMINED. HIS CAR IS PARKED IN FRONT OF THE ER AND HE WAS CONCERNED ABOUT IT. SECURITY CHECKED ON IT AND IT'S NOT AN ISSUE. PT HAS SPENT A GOOD DEAL OF TIME READING. BEHAVIORS CONGRUENT WITH HIS STATED MOOD. HE HAS ATTENTED ALL MEALS, SNACKS AND GROUP TIME THAT WAS PROVIDED BY [facility] TODAY. PT HAS RECEIVED Q15 MIN VISUAL SAFETY CHECKS THROUGHOUT THE SHIFT
[2025-05-26 19:41] VITALS: BP 128/85
--- NOTE | 2025-05-26 20:40 | NUR ---
MEDICATION ADMINISTRATION: PATIENT WAS GIVEN MEDICATION ADMINISTRATION INCLUDING WHAT HE CHOSE TO TAKE LAST NIGHT, WHAT IS SCHEDULED AND WHAT IS AVAILABLE NEEDED, INCLUDING WHAT EACH MEDICATION IS FOR. HE CHOSE TO SKIP HIS SCHEDULED SEROQUEL DUE TO "IT'S MAKING ME TOO SLEEPY". IT WAS REITERATED THE DIFFERENCE BETWEEN SCHEDULED MEDICATIONS AND NEEDED, BUT HE REMAINED ADAMANT REGARDING HIS CHOICES. HE TOOK MELATONIN, VISTARIL, TRAZODONE AND NEURONTIN, PER HIS REQUEST. CONTINUING TO MONITOR FOR EFFECTIVENESS AND SAFETY.
--- NOTE | 2025-05-27 04:43 | NUR ---
SHIFT SUMMARY: PATIENT WAS IN THE DINING ROOM HAVING DINNER AT THE BEGINNING OF THE SHIFT. HE THEN CAME OUT AND JOINED STAFF AND PEERS IN THE DAYROOM TO WATCH TELEVISION. HE STATED THAT HE HAD "A GREAT DAY" AND "I AM LEARNING A LOT HERE", AND "I HAVE A LOT OF HOPE". HE STATED THAT HE WANTED "VISTARIL, MELATONIN, NEURONTIN AND TRAZODONE, JUST SKIP THE SEROQUEL" THIS SHIFT. HE WAS EDUCATED REGARDING THE SEROQUEL BEING SCHEDULED, WHILE VISTARIL, MELATONIN AND TRAZODONE ARE NEEDED. HE RESPONDED, "I THINK THE SEROQUEL IS WHAT IS MAKING ME TOO SLEEPY IN THE MORNING". IT WAS SUGGESTED THAT HE MENTION THAT TO THE DOCTOR IN THE MORNING. HE PARTICIPATED IN SNACK AND WRAP UP GROUP, AND WAS COMPLIANT WITH EVENING MEDICATIONS. HE WENT BACK TO THE DAYROOM TO FINISH WATCHING TELEVISION, AND THEN WENT TO HIS ROOM. HE WAS NOTED TO BE IN BED RESTING WITH EYES CLOSED AND RESPIRATIONS CONFIRMED THROUGHOUT THE REMAINDER OF THE SHIFT. CONTINUING TO MONITOR FOR SAFETY WITH Q15 MINUTE CHECKS.
[2025-05-27 08:50] VITALS: BP 129/84
--- NOTE | 2025-05-27 15:52 | NUR ---
SHIFT SUMMARY PT HAS BEEN UP AND INVOLVED IN THE [facility] ALL SHIFT. ATTENDED ALL MEALS AND SNACKS, HE TOOK A SHOWER REQUESTED. STS HE SLEPT WELL LAST NIGHT AFTER ADJUSTING HIS NOC SLEEP MEDS. HE IS LOOKING FORWARD TO WORKING ON HIS DC PLAN THIS WEEK. HE HAS DENIED SI/HI/AVH. HE HAS BEEN PLEASANT AND COOPERATIVE TODAY HE HAS RECEIVED Q15 MIN VISUAL SAFETY CHECKS THROUGHOUT THIS SHIFT.
[2025-05-27 19:35] VITALS: BP 132/79
--- NOTE | 2025-05-28 00:40 | NUR ---
MEDICATION ADMINISTRATION: PATIENT REQUESTED HIS USUAL TRAZODONE, MELATONIN AND VISTARIL TO HELP HIM SLEEP. HE STATED, "THAT IS THE FORMULA THAT WORKS FOR ME" AND HE HAS BEEN TAKING THEM EACH EVENING WHILE HERE. THEY WERE GIVEN WITH GOOD EFFECT. CONTINUING TO MONITOR FOR EFFECTIVENESS AND SAFETY.
--- NOTE | 2025-05-28 04:15 | NUR ---
SHIFT SUMMARY: PATIENT WAS IN THE DINING AREA FINISHING HIS DINNER AT THE BEGINNING OF THE SHIFT. HE THEN CAME OUT TO THE DAYROOM AND WAS ABLE TO ANSWER POLE FRAMER MACHINE QUESTIONS IN A LOGICAL AND LINEAR MANNER. HE PRESENTED EUTHYMIC, AND HE DENIED SUICIDAL IDEATION, THOUGHTS OF SELF HARMING AND A/V/T HALLUCINATIONS. HE HAD FORWARD THINKING AND WAS FUTURE ORIENTED IN A POSITIVE MANNER. HE REQUESTED PRN VISTARIL WITH HIS SCHEDULED EVENING MEDICATIONS, WHICH WAS GIVEN TO GOOD EFFECT. HE PARTICIPATED IN SNACK AND WRAP UP GROUP AT 1999 IN THE DINING AREA. HE THEN WENT BACK TO THE DAY ROOM TO FINISH A MOVIE, THEN WAS NOTED TO BE IN BED READING FOR A TIME, THEN RESTING WITH EYES CLOSED AND RESPIRATIONS CONFIRMED FOR THE REMAINDER OF THE SHIFT. CONTINUING TO MONITOR FOR SAFETY WITH Q15 MINUTE CHECKS.
[2025-05-28 09:07] VITALS: BP 137/86
--- NOTE | 2025-05-28 17:27 | NUR ---
SHIFT SUMMARY PT UP AND INVOLVED IN MILIEU ALL SHIFT, ATTENDED ALL MEALS/SNACKS, ATTENDED EACH GROUP SESSION. HE IS UPBEAT AND EXCITED ABOUT HIS PENDING DC TOMORROW. HE HAS CONTINUED TO DENY SI/HI/AVH THROUGHOUT THIS SHIFT. PT IS IN HIS ROOM READING THE BOOK HE'S BEEN WORKING ON, STS HE'S TRYING HARD TO FINISH IT BEFORE HE IS DC'D. PT HAS HAD Q15 MIN VISUAL SAFETY CHECKS THROUGHOUT THIS SHIFT
[2025-05-28 21:23] VITALS: BP 128/95
--- NOTE | 2025-05-29 04:29 | NUR ---
SHIFT SUMMARY PT IN HIS ROOM, READING AT THE START OF SHIFT. HE REPORTED HIS MOOD GOOD, BUT STATED HE WAS HAVING 5/10 ANXIETY AND ASKED FOR AND RECEIVED VISTARIL FOR MASS OF 2. PT HAD EVENING SNACK, WAS COMPLIANT WITH SCHEDULED MEDICATIONS. HE WATCHED TV AND WENT TO BED AROUND 2200. PT PRESENTED TO THE NURSES STATION AT APPROXIMATELY 2250, STATED HE COULDN'T SLEEP AND ASKED FOR MEDICATION. PT RECEIVED PRN TRAZODONE AND WENT BACK TO BED. Q15 MINUTE CHECKS TO CONTINUE PER PT SAFETY/UNIT PROTOCOL.
--- NOTE | 2025-05-29 07:25 | NUR ---
IMPORTANT DISCHARGE INFORMATION PATIENT TO BE DISCHARGED TODAY. HE HAS HIS OWN VEHICLE IN THE [facility] P[facility]. HE WOULD LIKE TO BE DISCHARGED AROUND 11AM, PENDING DOCTORS ORDERS. ALL PARTIES VERBALIZE AN UNDERSTANDING. FOLLOW UP WITH NEW PCP AT THE [facility] IN [place] ON 06/05/25 AT 2:50PM WITH RUTH SAMUELS. FOLLOW UP WITH [facility]: [facility] FAX# [phone]
[2025-05-29 09:01] VITALS: BP 135/87
[2025-05-29] MEDS ORDERED: NICO21TP TOP ×2 (11:03)
--- NOTE | 2025-05-29 12:49 | NUR ---
DISCHARGE NOTE PT WAS CALM THIS SHIFT AND HAD A GOOD MOOD R/T D/C HOME TODAY. LUPE MEJIA COMPLETED THE SAFETY PLAN WITH THE PT. HE STATES UNDERSTANDING OF HIS D/C INSTRUCTIONS AND F/U APPOINTMENTS. D/C FORM WAS SIGNED BY PT. PT WAS GIVEN A COPY OF HIS SAFETY PLAN. BELONINGS WERE RETURNED TO PT FORM HIS ASSIGNED TOTE. HE CONFIRMS ALL BELONGINGS ARE PRESENT. HE DRESSED SELF AND AMBULATED OUT OF THE BUILDING TO HIS OWN VEHICLE THAT WAS IN THE PARKING LOT OF THE ED. ALL MEDS WERE FAXED TO [facility] IN [place], [place].
== END 2025-05-29 12:40 | disposition home or self-care (01) | DRG 885 ==
LOC: BHU 10:13
PROVIDERS: ADMIT Psychiatry & Neurology Psychiatry
DX: F33.2 Major depressive disorder, recurrent severe without psychotic features (principal); R45.851 Suicidal ideations; F41.9 Anxiety disorder, unspecified; R45.1 Restlessness and agitation; Z91.51 Personal history of suicidal behavior; Z79.899 Other long term (current) drug therapy
CPT/HCPCS: 36415; 80061; 83036; A9270

== ENCOUNTER 2025-07-20 18:51 | Emergency (ER) | payer OTHER ==
[~2025-07-20] VITALS: Ht 190.5 cm; Wt 95.2 kg
[~2025-07-20 18:51] MED LIST changes: +NICO21TP TOP
[2025-07-20 19:36] LABS: BASOPHILS ABSOLUTE AUTO 0.03 K/mm3 (0.00-0.23); BASOPHILS PERCENT AUTO 1 % (0-2); EOSINOPHILS ABSOLUTE AUTO 0.08 K/mm3 (0.00-0.68); EOSINOPHILS PERCENT AUTO 1 % (0-6); Hematocrit 44.1 % (37.0-53.0); Hemoglobin 15.0 g/dL (13.5-17.5); IMMATURE GRAN ABSOLUTE AUTO 0.01 K/mm3 (0.00-0.10); IMMATURE GRAN PERCENT AUTO 0 % (0-1); LYMPHOCYTES ABSOLUTE AUTO 2.51 K/mm3 (0.84-5.20); LYMPHOCYTES PERCENT AUTO 38 % (21-46); MONOCYTES ABSOLUTE AUTO 0.49 K/mm3 (0.16-1.47); MONOCYTES PERCENT AUTO 8 % (4-13); Mean Corpuscular HGB Conc 34.0 g/dL (31.5-36.5); Mean Corpuscular Volume 84 fL (80-100); NEUTROPHILS ABSOLUTE AUTO 3.41 K/mm3 (1.96-9.15); NEUTROPHILS PERCENT AUTO 52 % (41-73); NRBC ABSOLUTE 0.00 K/mm3 (0.00-0.02); NRBC Auto 0.0 /100 WBC (0.0-0.2); Platelet Count 216 K/mm3 (150-400); RDW Coefficient Variation 12.2 % (11.7-14.2); RDW Standard Deviation 37.2 fL (35.1-46.3)
[2025-07-20 20:12] VITALS: BP 139/93
[2025-07-20 20:15] LABS: Alanine Aminotransfer (ALT/SGP 39.0 U/L (12-78); Albumin, Blood 4.8 g/dL (3.4-5.0); Albumin/Globulin Ratio 1.5 (0.8-1.8); Anion Gap 8.0 mmol/L (3-11); Aspartate Aminotrans (AST/SGOT 39.0 U/L (12-37); Bilirubin, Total 0.9 mg/dL (0.1-1.0); Blood Urea Nitrogen 11.0 mg/dL (8-24); CO2, Blood 26.0 mmol/L (21-32); Calcium, Blood 9.1 mg/dL (8.5-10.1); Chloride, Blood 106.0 mmol/L (98-108); Creatinine, Blood 0.81 mg/dL (0.60-1.20); Globulin, Blood 3.1 g/dL (2.2-4.0); Glucose, Blood 92.0 mg/dL (70-99); Potassium, Blood 3.7 mmol/L (3.5-5.5); Sodium, Blood 136.0 mmol/L (136-145); Total Protein, Blood 7.9 g/dL (6.4-8.2)
== END 2025-07-20 21:35 | disposition home or self-care (01) ==
LOC: ER 18:51
PROVIDERS: Student in an Organized Health Care Education/Training Program
DX: R55 Syncope and collapse (principal); Z79.899 Other long term (current) drug therapy
CPT/HCPCS: 80053; 85025; 93005; 93010; 99284-25

== ENCOUNTER 2025-07-23 15:12 | Emergency (ER) | payer OTHER ==
[~2025-07-23] VITALS: Ht 190.5 cm; Wt 94.3 kg
[2025-07-23 15:27] VITALS: BP 148/97
[2025-07-23] MEDS ORDERED: Ondansetron HCl 2 MG / ML 2ML Vial IV ONE (16:35)
[2025-07-23] MEDS ORDERED: LORazepam 2 MG/ML 1ML Injection IV ONE (16:35)
[2025-07-23] MEDS ORDERED: Folic Acid 1 MG TAB PO ONE (16:35)
[2025-07-23] MEDS ORDERED: NS 1,000 ML IV SCH (16:35)
[2025-07-23] MEDS ORDERED: PREGABALIN75 MG PO (16:35)
[2025-07-23 17:29] LABS: BASOPHILS ABSOLUTE AUTO 0.03 K/mm3 (0.00-0.23); BASOPHILS PERCENT AUTO 0 % (0-2); EOSINOPHILS ABSOLUTE AUTO 0.12 K/mm3 (0.00-0.68); EOSINOPHILS PERCENT AUTO 2 % (0-6); Hematocrit 44.8 % (37.0-53.0); Hemoglobin 15.1 g/dL (13.5-17.5); IMMATURE GRAN ABSOLUTE AUTO 0.05 K/mm3 (0.00-0.10); IMMATURE GRAN PERCENT AUTO 1 % (0-1); LYMPHOCYTES ABSOLUTE AUTO 1.79 K/mm3 (0.84-5.20); LYMPHOCYTES PERCENT AUTO 27 % (21-46); MONOCYTES ABSOLUTE AUTO 0.52 K/mm3 (0.16-1.47); MONOCYTES PERCENT AUTO 8 % (4-13); Mean Corpuscular HGB Conc 33.7 g/dL (31.5-36.5); Mean Corpuscular Volume 84 fL (80-100); NEUTROPHILS ABSOLUTE AUTO 4.20 K/mm3 (1.96-9.15); NEUTROPHILS PERCENT AUTO 63 % (41-73); NRBC ABSOLUTE 0.00 K/mm3 (0.00-0.02); NRBC Auto 0.0 /100 WBC (0.0-0.2); RDW Coefficient Variation 12.1 % (11.7-14.2); RDW Standard Deviation 36.6 fL (35.1-46.3)
[2025-07-23 17:32] LABS: Alanine Aminotransfer (ALT/SGP 43 U/L (12-78); Albumin, Blood 4.8 g/dL (3.4-5.0); Albumin/Globulin Ratio 1.5 (0.8-1.8); Anion Gap 6 mmol/L (3-11); Aspartate Aminotrans (AST/SGOT 47 U/L (12-37); Bilirubin, Total 0.7 mg/dL (0.1-1.0); Blood Urea Nitrogen 14 mg/dL (8-24); CO2, Blood 27 mmol/L (21-32); Calcium, Blood 9.5 mg/dL (8.5-10.1); Chloride, Blood 107 mmol/L (98-108); Creatinine, Blood 0.97 mg/dL (0.60-1.20); Ethanol (Alcohol), Blood, Med <3 mg/dL; Globulin, Blood 3.2 g/dL (2.2-4.0); Glucose, Blood 91 mg/dL (70-99); Magnesium, Blood 2.3 mg/dL (1.6-2.4); Phosphorus, Blood 3.8 mg/dL (2.5-4.9); Potassium, Blood 4.3 mmol/L (3.5-5.5); Sodium, Blood 136 mmol/L (136-145); Total Protein, Blood 8.0 g/dL (6.4-8.2)
[2025-07-23 18:25] LABS: Platelet Count 212 K/mm3 (150-400)
== END 2025-07-23 19:50 | disposition home or self-care (01) ==
LOC: ER 15:12
PROVIDERS: Emergency Medicine
DX: F10.239 Alcohol dependence with withdrawal, unspecified (principal); Y90.0 Blood alcohol level of less than 20 mg/100 ml; Z00.8 Encounter for other general examination; Z86.59 Personal history of other mental and behavioral disorders; Z91.51 Personal history of suicidal behavior; Z79.899 Other long term (current) drug therapy
CPT/HCPCS: 80053; 80320; 83735; 84100; 85025; 96374; 96375; 99285-25; A9270; J2060; J2405; J7030